=== PATIENT | female | born 1980 | race African-American/Black ===

== ENCOUNTER 2022-07-06 15:04 | Outpatient (CLI) | payer OTHER | END 2022-07-06 15:05 | disposition home or self-care (01) | LOC: CSHULT 15:04 | PROVIDERS: ATTEND Family Medicine | DX: O09.523 Supervision of elderly multigravida, third trimester (principal); Z3A.27 27 weeks gestation of pregnancy | CPT/HCPCS: 76805 ==

== ENCOUNTER 2022-09-28 05:30 | Inpatient (IN) | payer OTHER ==
[2022-09-28] MEDS ORDERED: HYDROcodone/Acetaminophen 5/325 mg Tablet PO PRN ×2 (08:09→19:31)
[2022-09-28] MEDS ORDERED: Tranexamic Acid 1,000 MG/10 ML VIAL IVP PRN (08:09)
[2022-09-28] MEDS ORDERED: Ondansetron PF 4 MG/2 ML Vial IVP PRN ×3 (08:09→19:31)
[2022-09-28] MEDS ORDERED: Acetaminophen 500 MG TAB PO PRN (08:09)
[2022-09-28] MEDS ORDERED: Carboprost 250 MCG/ML AMP IM PRN (08:09)
[2022-09-28] MEDS ORDERED: Promethazine HCl 25 MG/ML VIAL IM PRN ×2 (08:09→18:09)
[2022-09-28] MEDS ORDERED: NS w/ Oxytocin 30 units 500 ML IV SCH ×2 (08:09)
[2022-09-28] MEDS ORDERED: hydrALAZINE 20 MG/ML VIAL SLOW IVP PRN ×2 (08:09→19:31)
[2022-09-28] MEDS ORDERED: Penicillin G Potassium 5 MILL.UNITS in Sodium Chloride 0.9% 100 ML IVPB SCH (08:09)
[2022-09-28] MEDS ORDERED: Lidocaine 1% (PF) 30 ML VIAL SC PRN (08:09)
[2022-09-28] MEDS ORDERED: fentaNYL 50 mcg/mL 1 mL Vial SLOW IVP PRN (08:09)
[2022-09-28] MEDS ORDERED: Ibuprofen 800 MG TAB PO PRN (08:09)
[2022-09-28] MEDS ORDERED: Diphenoxylate HCl/Atropine Tablet PO PRN (08:09)
[2022-09-28] MEDS ORDERED: Methylergonovine 0.2 MG/ML VIAL IM PRN (08:09)
[2022-09-28] MEDS ORDERED: Misoprostol 200 MCG TAB PR PRN (08:09)
[2022-09-28 08:11] VITALS: BMI 33.4
[2022-09-28] MEDS: Lactated Ringer's 1,000 ML IV SCH ×2 (08:30→19:08)
[2022-09-28 08:57] LABS: Hemoglobin 11.1 g/dL (12.0-15.5); Mean Corpuscular HGB CONC 33.8 g/dL (32.0-36.0); Mean Corpuscular Hemoglobin 30.4 pg (27.0-33.0); Mean Corpuscular Volume 89.9 fl (81.6-98.3); Mean Platelet Volume 10.7 fl (7.4-10.4); Platelet Count 226 10x3/uL (150-450); RBC Distribution Width 13.3 % (11.5-14.5); Red Blood Cell (RBC) Count 3.65 10x6/uL (3.90-5.03); White Blood Cell (WBC) Count 8.6 10x3/uL (3.5-10.5)
[2022-09-28] MEDS ORDERED: fentaNYL/Ropivacaine Epidural 100 ML ONE (09:22)
[2022-09-28] MEDS ORDERED: Bupivacaine 0.25% HCL 30 ML VIAL ONE (12:00)
[2022-09-28] MEDS ORDERED: Penicillin G 2.5 MILL.units 2.5 MILL.UNITS in Premix Bag 1 BAG IVPB SCH (12:30)
[2022-09-28 12:56] LABS: Hep B Surf Ag - L&D Non-Reactive S/CO (NonReactive)
[2022-09-28 13:06] LABS: Syphilis Antibody Nonreactive (Nonreactive); Syphilis Antibody Index 0.04 S/CO (<1.00 Non-Reactive)
[2022-09-28] MEDS: NS w/ Oxytocin 30 units 500 ML IV SCH ×2 (15:48→16:40)
[2022-09-28] MEDS ORDERED: Lidocaine 2% PF 100 mg/5 ml Syringe ONE (17:01)
[2022-09-28] MEDS ORDERED: Lidocaine 1% PF 5 ML VIAL ONE (17:02)
[2022-09-28] MEDS ORDERED: Carboprost 250 MCG/ML AMP ONE (17:18)
[2022-09-28] MEDS ORDERED: Acetaminophen 325 MG TAB PO PRN (18:09)
[2022-09-28] MEDS ORDERED: Naloxone HCl 0.4 mg/ml Vial IVP PRN ×2 (18:09)
[2022-09-28] MEDS ORDERED: ePHEDrine Sulfate 50 MG/10 ML VIAL SLOW IVP PRN (18:09)
[2022-09-28] MEDS ORDERED: diphenhydrAMINE 50 MG/ML VIAL IVP PRN (18:09)
[2022-09-28] MEDS ORDERED: Lactated Ringer's 500 ML IV PRN (18:09)
[2022-09-28] MEDS ORDERED: Moisturizing Cream (Eucerin) 113 GM JAR TOP PRN (18:09)
[2022-09-28] MEDS ORDERED: Ondansetron PF 4 MG/2 ML Vial ONE (18:11)
[2022-09-28] MEDS ORDERED: Communication Order-Pharmacy FS SCH (18:15)
[2022-09-28] MEDS ORDERED: Ondansetron HCl/PF 8 MG in Sodium Chloride 0.9% 50 ML IVPB SCH (18:20)
[2022-09-28] MEDS ORDERED: Dexamethasone 4 mg/ml Vial SLOW IVP SCH (18:30)
[2022-09-28] MEDS ORDERED: diphenhydrAMINE 25 MG CAP PO PRN (19:31)
[2022-09-28] MEDS ORDERED: Lanolin Ointment 7 GM TUBE TOP PRN (19:31)
[2022-09-28] MEDS ORDERED: Milk Of Magnesia 30 ML UDCUP PO PRN (19:31)
[2022-09-28] MEDS ORDERED: Benzocaine-Menthol 82.5 ML CAN TOP PRN (19:31)
[2022-09-28] MEDS ORDERED: Boostrix 0.5 ML (Tdap) VIAL (>/=7 yrs of age) IM ONE (19:31)
[2022-09-28] MEDS ORDERED: Bisacodyl 10 MG SUPP PR PRN (19:31)
[2022-09-28] MEDS ORDERED: Ferrous Sulfate 325 MG TAB PO SCH (20:00)
[2022-09-28 20:57] LABS: Hemoglobin 10.9 g/dL (12.0-15.5); Mean Corpuscular HGB CONC 33.6 g/dL (32.0-36.0); Mean Corpuscular Hemoglobin 30.5 pg (27.0-33.0); Mean Corpuscular Volume 90.8 fl (81.6-98.3); Mean Platelet Volume 10.8 fl (7.4-10.4); Platelet Count 231 10x3/uL (150-450); RBC Distribution Width 13.4 % (11.5-14.5); Red Blood Cell (RBC) Count 3.57 10x6/uL (3.90-5.03); White Blood Cell (WBC) Count 20.4 10x3/uL (3.5-10.5)
[2022-09-28 20:58] LABS: #Basophils 0.1 10x3/uL (0.0-0.2); #Neutrophils 18.3 10x3/uL (1.5-8.4); %Basophils 0.2 % (0.0-2.0); %Lymphocytes 4.5 % (18.0-47.0); %Monocytes 4.8 % (0.0-10.0); %Neutrophils 89.4 % (40.0-75.0)
[2022-09-28 21:05] LABS: D-Dimer Test 4.26 mg/L FEU (0.19-0.50); INR-International Normal Ratio 0.9; PTT 29.1 sec (22.0-33.0)
[2022-09-28] MEDS: Labetalol HCl 100 MG TAB PO SCH (21:10)
[2022-09-28] MEDS: Docusate 100 MG CAP PO SCH (21:16)
[2022-09-28] MEDS: Ibuprofen 800 MG TAB PO SCH (21:57)
[2022-09-29] MEDS: Ibuprofen 800 MG TAB PO SCH ×3 (05:38→21:02)
[2022-09-29] MEDS: Labetalol HCl 100 MG TAB PO SCH ×3 (05:42→21:02)
[2022-09-29] MEDS: Ferrous Sulfate 325 MG TAB PO SCH ×2 (09:12→18:55)
[2022-09-29] MEDS: Docusate 100 MG CAP PO SCH ×2 (09:13→21:04)
[2022-09-29] MEDS: Prenatal Vitamin 1 TAB PO SCH (09:31)
[2022-09-30] MEDS: Ibuprofen 800 MG TAB PO SCH ×2 (05:45→13:59)
[2022-09-30] MEDS: Labetalol HCl 100 MG TAB PO SCH ×2 (05:46→13:58)
[2022-09-30 07:45] VITALS: TEMP 99
[2022-09-30] MEDS: Prenatal Vitamin 1 TAB PO SCH (08:08)
[2022-09-30] MEDS: Ferrous Sulfate 325 MG TAB PO SCH (09:52)
[2022-09-30 14:00] VITALS: BP 141/76
== END 2022-09-30 17:45 | disposition home or self-care (01) | DRG 807 ==
LOC: CSHLD 07:36 → CSHPP 20:03
PROVIDERS: ADMIT Family Medicine; ATTEND Family Medicine
PROC: 10E0XZZ Delivery of Products of Conception, External Approach (ICD-10-PCS; principal; 2022-09-28)
PROC: 10D17Z9 Manual Extraction of Products of Conception, Retained, Via Natural or Artificial Opening (ICD-10-PCS; 2022-09-28)
PROC: 10907ZC Drainage of Amniotic Fluid, Therapeutic from Products of Conception, Via Natural or Artificial Opening (ICD-10-PCS; 2022-09-28)
PROC: 3E033VJ Introduction of Other Hormone into Peripheral Vein, Percutaneous Approach (ICD-10-PCS; 2022-09-28)
PROC: 0UQMXZZ Repair Vulva, External Approach (ICD-10-PCS; 2022-09-28)
DX: O69.81X0 Labor and delivery complicated by cord around neck, without compression, not applicable or unspecified (principal); Z37.0 Single live birth; Z3A.39 39 weeks gestation of pregnancy; Z79.899 Other long term (current) drug therapy; O70.0 First degree perineal laceration during delivery; O71.82 Other specified trauma to perineum and vulva; R03.0 Elevated blood-pressure reading, without diagnosis of hypertension; O99.893 Other specified diseases and conditions complicating puerperium
CPT/HCPCS: 36415; 51702; 85027; 85049; 85300; 85362; 85379; 85384; 85610; 85730; 86780; 86850; 86900; 86901; 87340; J1100; J2405; J2550; J2590; J3490; J7120; S0020